=== PATIENT | female | born 1935 | race Caucasian/White ===

== ENCOUNTER 2019-10-28 08:42 | Observation (INO) ==
[2019-10-28] MEDS ORDERED: NS 1,000 ML IV ONE (09:21)
[2019-10-28] MEDS ORDERED: XYLOCAINE 1%/EPI 1:100,000 INJ ONE ×2 (09:21→10:45)
[2019-10-28] MEDS ORDERED: BOOSTRIX VACCINE IM ONE (09:21)
--- NOTE | 2019-10-28 10:11 | Diag Imaging Result Doc PS360 ---
EXAM: CT HEAD/C-SPINE W/O CONTRAST - 10/28/2019 HISTORY: head injury/pain TECHNIQUE: CT head/cervical spine without contrast COMPARISON: None. FINDINGS: CT head: There is no evidence of intracranial hemorrhage, mass effect, midline shift, or hydrocephalus. There is no evidence of infarct, although acute infarcts may not be immediately visible. There is no evidence of skull fracture. Visualized portions of paranasal sinuses and mastoid air cells appear clear except for minimal mucosal thickening in the visualized right maxillary sinus. CT cervical spine: The bones appear osteopenic. There is multilevel degenerative disc and degenerative facet disease. There are substantial degenerative changes at atlantoaxial articulation. There is no fracture or subluxation identified. IMPRESSION: CT head: No visible acute intracranial abnormality. No evidence of intracranial injury. CT cervical cervical spine: Multilevel degenerative disease. No evidence of fracture or subluxation. This exam was performed using automated exposure control, adjustment of mA or kV according to patient size, and/or use of iterative reconstruction technique. Electronically signed by Nacho Quan 10/28/2019 10:09 AM
[2019-10-28 10:15] LABS: BASO# 0.03 X1000 (0.0-0.2); BASO% 0.4 % (0.0-0.8); EOS# 0.01 X1000 (0.0-0.7); EOS% 0.1 % (0.0-10.0); HEMATOCRIT 33.4 % (37.0-47.0); HEMOGLOBIN 10.3 g/dL (12.0-16.0); LYMPH# 0.79 X1000 (1.2-3.4); LYMPH% 10.2 % (20.5-51.1); MCH 29.4 PG (27-31); MCHC 30.8 g/dL (33-37); MCV 95.4 FL (81-99); MONO# 0.48 X1000 (0.11-0.59); MONO% 6.2 % (1.7-9.3); MPV 10.3 FL (7.4-10.4); NEUT# 6.44 X1000 (1.4-6.5); NEUT% 83.1 % (42.2-75.2); PLT 391 X1000 (130-400); RDW 13.7 % (11.5-14.5); WBC 7.75 X1000 (4.8-10.8)
[2019-10-28 10:33] LABS: AGAP 12; ALB/GLOB RATIO 1.5; ALBUMIN 4.1 g/dL (3.5-5.0); ALKALINE PHOSPHATASE 88 U/L (32-104); BUN 12 mg/dL (8-22); CALCIUM 9.9 mg/dL (8.8-10.2); CHLORIDE 102 mmol/L (98-107); CK PROFILE 30 U/L (24-173); COSMO 275; CREATININE 0.8 mg/dL (0.5-0.9); ESTIMATED GFR > 60; GLUCOSE 92 mg/dL (70-104); GOT 8 U/L (10-30); GPT 9 U/L (10-36); MAGNESIUM 2.1 mg/dL (1.5-2.7); POTASSIUM 4.2 mmol/L (3.5-5.1); SODIUM 138 mmol/L (136-145); TCO2 24 mmol/L (25-35); TOTAL BILIRUBIN 0.18 mg/dL (0.20-1.00); TOTAL PROTEIN 6.9 g/dL (6.3-8.3)
[2019-10-28 10:40] LABS: PROTIME 13.3 Seconds (11.0-16.0)
--- NOTE | 2019-10-28 10:59 | Diag Imaging Result Doc PS360 ---
EXAM: CHEST-PORTABLE - 10/28/2019 HISTORY: syncope TECHNIQUE: Portable chest COMPARISON: 03/13/2019 FINDINGS: Heart size appears within normal limits. There are COPD/emphysematous changes. There are stable right upper lobe granuloma from old granulomatous disease. There are mild pulmonary scarring and pleural thickening at the left base. There are skinfold artifact over the left midlung. Lungs appear grossly clear of acute changes. There is no evidence of pneumothorax. IMPRESSION: COPD/emphysematous changes. Mild scarring at left base. No acute changes. Electronically signed by Nacho Quan 10/28/2019 10:56 AM
[2019-10-28] MEDS ORDERED: NEOSPORIN OINTMENT PACKET TOP ONE (11:07)
--- NOTE | 2019-10-28 11:16 | PROVIDER DOCUMENTATION ---
HPI-Syncope/Dizziness - General Chief Complaint: Syncope Stated Complaint: SYNCOPE/HEAD INJURY Time Seen by Provider: 10/28/19 09:13 Source: patient, family Allergies/Adverse Reactions: Patient Allergies Allergy/AdvReac Type Severity Reaction Status Date / Time cephalexin [From Keflex] Allergy ITCHING Verified 10/28/19 09:05 Home Medications: Home Medication List Medication Instructions Recorded Confirmed Last Taken Type NK [No Home Medications] 10/28/19 10/28/19 Unknown History - History of Present Illness-Syncope/Dizzy Nature of Presenting Problem: Patient lives by self, has recently had right TKA (two months ago) and reports that since surgery, she has been having episodes of near syncope, mainly in the mornings. States gets light headed, sees spots and nearly blacks out. This morning, she had another episode, but this time she did black out (briefly) and hit right side of head on the floor. Has some bleeding to right parietal scalp. Has not seen a doctor for these episodes, has no medical problems and is on no medications. Patient was not placed on blood thinners post-operatively. Her sharma rgery was done in [place] by Dr. Cooper. cannot remember her last EKG, and does not think she has ever had a stress test. No chest pain, shortness of breath, leg swelling. Last Td is uncertain. Patient called her daughter/son-in-law after this episode occurred this morning and was brought POV. Prior Episodes: reports: recent history Onset/Duration: reports: abrupt, just prior to arrival Timing: reports: gone now Position/Activity at time of episode: reports: activity (gotten out of bed to go to the bathroom) Symptoms prior to episode: reports: lightheaded, visual disturbance (saw spots), injury (right scalp, right shoulder, right elbow) Context: reports: lost consciousness, collapsed, felt faint. denies: confused after event, incontinent of urine, incontinent of stool Loss of Consciousness: brief (seconds) Location of injury. (If syncope resulted in an injury.): reports: head, RUE Current Symptoms: reports: none/feels normal Similar symptoms previously: denies: workup for same problem Recently Seen Here or By Another Healthcare Provider: No Review of Systems - Adult - REVIEW OF SYSTEMS - ADULT Constitutional: reports: no symptoms reported Eyes: reports: no symptoms reported Ears, Nose, Mouth & Throat: reports: no symptoms reported Cardiovascular: reports: no symptoms reported Respiratory: reports: no symptoms reported Gastrointestinal: reports: no symptoms reported Genitourinary: reports: no symptoms reported Musculoskeletal: reports: no symptoms reported Integumentary: reports: no symptoms reported Neurological: reports: no symptoms reported Psychiatric: reports: no symptoms reported Endocrine: reports: no symptoms reported Hematologic/Lymphatic: reports: no symptoms reported Allergic/Immunologic: reports: no symptoms reported All Other Systems: Reviewed and Negative Past History - Adult - PAST MEDICAL HISTORY-ADULT Review of Records: reports: Old Records Reviewed, Nursing Assessment Review, Medications Reviewed, Social history reviewed & non-contributory. Major Childhood Illnesses: reports: denies history Cardiovascular: reports: denies history. denies: AR Respiratory: reports: denies history Gastrointestinal: reports: denies history Obstetrical/Gynecological: reports: denies history Genitourinary: reports: denies history Musculoskeletal: reports: denies history Neurological: reports: denies history Endocrine/Immune: reports: denies history Other Conditions: reports: denies history - PRIOR SURGERIES/PROCEDURES Surgical/Procedure History: reports: recent surgery (right total knee), hysterectomy, bowel surgery - IMMUNIZATION STATUS Childhood Immunizations: UTD Flu Vaccine: NUTD - FAMILY HISTORY Family History: reviewed, not pertinent - SOCIAL HISTORY Smoking: non-smoker Substance Use: none/never Alcohol Use Frequency: never Living Situation: alone Physical Exam-General - PHYSICAL EXAM-ADULT Initial Vital Signs Reviewed: Yes (VSSAF) - CONSTITUTIONAL General Appearance: appears well, alert, no apparent distress, other (appears younger than stated age.) - EYES Eyes: PERRL/EOMI, pink conjunctivae - HEAD, EARS, NOSE, MOUTH & THROAT HENMT: moist mucous membranes, normal ENT inspection, TMs normal, pharynx normal , other (1.5cm lac right parietal scalp, mildly tender) - NECK Neck: non-tender, full range of motion, supple, normal inspection. negative: meningismus - RESPIRATORY Respiratory: chest non-tender, lungs clear, normal breath sounds, no pleuratic chest pain, no respiratory distress, no accessory muscle use - CARDIOVASCULAR Cardiovascular: normal peripheral pulses, regular rate, rhythm, no edema, no gallop, no JVD, no murmur - GASTROINTESTINAL (ABDOMEN) Abdominal Exam: normal bowel sounds, non tender, soft, no organomegaly, no pulsatile mass - LYMPHATIC Lymphatic: no adenopathy - MUSCULOSKELETAL Back Exam: normal inspection, no CVA tenderness, no vertebral tenderness Extremity: normal range of motion, non-tender, normal gait, normal inspection, no pedal edema, no calf tenderness - SKIN Integumentary: normal color, normal turgor, warm/dry - NEUROLOGIC Neurologic: auto cleaner II-XII nml as tested, grossly normal, no motor/sensory deficits - PSYCHIATRIC Psych/Mental Status: normal mood/affect, normal thought content, normal thought process, oriented x 3 Progress - PLAN OF CARE/RESULTS Progress/Plan/Lab Results: Vital Signs - 8 hr 10/28/19 08:45 10/28/19 08:56 10/28/19 08:58 Temperature 97.4 F L Pulse Rate 92 H 79 82 Respiratory Rate 17 17 24 Blood Pressure 140/73 159/80 O2 Sat by Pulse Oximetry 97 96 10/28/19 08:59 10/28/19 09:00 10/28/19 09:02 Temperature Pulse Rate 91 H 83 82 Respiratory Rate 19 21 16 Blood Pressure 147/84 152/87 O2 Sat by Pulse Oximetry 98 97 97 10/28/19 09:15 10/28/19 09:30 10/28/19 09:31 Temperature Pulse Rate 84 78 81 Respiratory Rate 24 25 H 15 Blood Pressure 154/72 O2 Sat by Pulse Oximetry 96 99 97 10/28/19 09:50 10/28/19 10:00 10/28/19 10:15 Temperature Pulse Rate 77 75 79 Respiratory Rate 20 17 18 Blood Pressure O2 Sat by Pulse Oximetry 10/28/19 10:30 10/28/19 10:31 Temperature Pulse Rate 74 74 Respiratory Rate 18 14 Blood Pressure 142/66 O2 Sat by Pulse Oximetry Laboratory Results - last 24 hr 10/28/19 10/28/19 10/28/19 09:02 10:04 10:04 WBC 7.75 RBC 3.50 L Hgb 10.3 L Hct 33.4 L MCV 95.4 MCH 29.4 MCHC 30.8 L RDW Std Deviation 13.7 Plt Count 391 MPV 10.3 Immature Gran % (Auto) 0.0 Neut % (Auto) 83.1 H Lymph % (Auto) 10.2 L [place] % (Auto) 6.2 Eos % (Auto) 0.1 Baso % (Auto) 0.4 Immature Gran # (Auto) 0.00 Neut # (Auto) 6.44 Lymph # (Auto) 0.79 L [place] # (Auto) 0.48 Eos # (Auto) 0.01 Baso # (Auto) 0.03 PT INR Sodium 138 Potassium 4.2 Chloride 102 Carbon Dioxide 24 L Anion Gap 12 BUN 12 Creatinine 0.8 Estimated GFR/1.73 m2 > 60 BUN/Creatinine Ratio 15 Glucose 92 POC Glucose 92 Calculated Osmolality 275 Calcium 9.9 Magnesium 2.1 Total Bilirubin 0.18 L AST 8 L ALT 9 L Alkaline Phosphatase 88 Creatine Kinase 30 Troponin T Lwn-X-Gfbwcnrprol Pept Total Protein 6.9 Albumin 4.1 Globulin 2.8 Albumin/Globulin Ratio 1.5 Urine Source Urine Color Urine Turbidity Urine pH Ur Specific [place] Urine Protein Ur Glucose (Stick) Ur Ketones (Stick) Urine Blood Urine Nitrite Urine Bilirubin Urobilinogen Dipstick Urine Leukocytes Urine WBC (Auto) Urine RBC (Auto) U Epithel Cells (Auto) Urine Bacteria (Auto) 10/28/19 10/28/19 10/28/19 10:04 10:04 10:04 WBC RBC Hgb Hct MCV MCH MCHC RDW Std Deviation Plt Count MPV Immature Gran % (Auto) Neut % (Auto) Lymph % (Auto) [place] % (Auto) Eos % (Auto) Baso % (Auto) Immature Gran # (Auto) Neut # (Auto) Lymph # (Auto) [place] # (Auto) Eos # (Auto) Baso # (Auto) PT 13.3 INR 1.00 Sodium Potassium Chloride Carbon Dioxide Anion Gap BUN Creatinine Estimated GFR/1.73 m2 BUN/Creatinine Ratio Glucose POC Glucose Calculated Osmolality Calcium Magnesium Total Bilirubin AST ALT Alkaline Phosphatase Creatine Kinase Troponin T < 0.010 Uok-D-Copwpvtxwzu Pept 103 Total Protein Albumin Globulin Albumin/Globulin Ratio Urine Source Urine Color Urine Turbidity Urine pH Ur Specific [place] Urine Protein Ur Glucose (Stick) Ur Ketones (Stick) Urine Blood Urine Nitrite Urine Bilirubin Urobilinogen Dipstick Urine Leukocytes Urine WBC (Auto) Urine RBC (Auto) U Epithel Cells (Auto) Urine Bacteria (Auto) 10/28/19 10/28/19 10:07 11:43 WBC RBC Hgb Hct MCV MCH MCHC RDW Std Deviation Plt Count MPV Immature Gran % (Auto) Neut % (Auto) Lymph % (Auto) [place] % (Auto) Eos % (Auto) Baso % (Auto) Immature Gran # (Auto) Neut # (Auto) Lymph # (Auto) [place] # (Auto) Eos # (Auto) Baso # (Auto) PT INR Sodium Potassium Chloride Carbon Dioxide Anion Gap BUN Creatinine Estimated GFR/1.73 m2 BUN/Creatinine Ratio Glucose POC Glucose 90 Calculated Osmolality Calcium Magnesium Total Bilirubin AST ALT Alkaline Phosphatase Creatine Kinase Troponin T Mpa-K-Lcwhkngyvez Pept Total Protein Albumin Globulin Albumin/Globulin Ratio Urine Source CLEAN CATCH Urine Color YELLOW Urine Turbidity HAZY Urine pH 6.0 Ur Specific [place] 1.012 Urine Protein TRACE A Ur Glucose (Stick) NEGATIVE Ur Ketones (Stick) 20 A Urine Blood NEGATIVE Urine Nitrite NEGATIVE Urine Bilirubin NEGATIVE Urobilinogen Dipstick NORMAL Urine Leukocytes LARGE A Urine WBC (Auto) TNTC A Urine RBC (Auto) <10 U Epithel Cells (Auto) <10 Urine Bacteria (Auto) NEGATIVE Orders Category Date Time Status Finger Stick Blood Sugar (ED) DIRECTED Care 10/28/19 09:20 Completed Saline Loc NOW Care 10/28/19 09:20 Active CHEST-PORTABLE [RAD] Stat Exams 10/28/19 09:[address] ANGIOGRM PULMONARY ARTERIES [CT] Stat Exams 10/28/19 10:[address] HEAD/C-SPINE W/O CONTRAST [CT] Stat Exams 10/28/19 09:19 Completed BLOOD CULTURE [BLDCUL] Stat Lab 10/28/19 13:49 Uncollected CBC WITH ELECTRONIC DIFF [HEME] Stat Lab 10/28/19 10:04 Completed CK PROFILE [SP CHEM] Stat Lab 10/28/19 10:04 Completed COMPREHENSIVE METABOLIC PANEL [CHEM] Stat Lab 10/28/19 10:04 Completed MAGNESIUM [CHEM] Stat Lab 10/28/19 10:04 Completed PRO B-NATRIURETIC PEPTIDE Stat Lab 10/28/19 10:04 Completed PROTIME WITH INR [COAG] Stat Lab 10/28/19 10:04 Completed TROPONIN T Stat Lab 10/28/19 10:04 Completed URINALYSIS W/POSS RFLX CULT [URINALYSIS] Stat Lab 10/28/19 11:43 Completed URINE CULTURE [RM] Routine Lab 10/28/19 11:43 Received 0.9% Sodium Chloride Inj [Ns] 1,000 ml Med 10/28/19 09:21 Discontinued IV 999 mls/hr Ciprofloxacin 400 mg/D5w [Cipro 400 mg/D5w] Med 10/28/19 13:49 Active 400 mg in 200 ml IV NOW Diph,Pertuss(Acell),Tet Vac/Pf [Boostrix Vaccine] Med 10/28/19 09:21 Discontinued 0.5 ml IM .ONCE ONE Lidocaine 1%/Epi 1:100,000 [Xylocaine 1%/Epi 1:100,000] Med 10/28/19 10:45 Discontinued 0 ml INJ NOW ONE Neomycin/Bacitrcn/Polymyx Oint [Neosporin Ointment Med 10/28/19 11:07 Discontinued Packet] 1 each TOP NOW ONE Suture Tray (General Purpose) Stat Oth 10/28/19 09:21 Active EKG [EKG] Stat Ther 10/28/19 08:47 Ordered Result Diagrams: 10/28/19 10:04 10/28/19 10:04 - REASSESSMENT Reassessment #1 Time Reassessed: 14:36 Status: improving (Patient given IVF, refused tylenol. Given also TdAP and IV Cipro for UTI. Lives by self. Will ask hospitalist to admit for syncope. PE has been ruled out.) - EKG 1 Time of EKG reading by physician:: 09:00 EKG Read and Signed by:: Tushar Duke EKG Interpretation (*Must complete 3 of following elements*): Abnormal Rate: 85 Rhythm: nsr [place]: left QRS: Q Waves present (inferiorly, consist with old IWMI), other (early transition) FL Interval: normal ST Wave: normal - XRAY 1 XRAY Study: Chest Impression: Abnormal, See EMR Report (Signed EXAM: CHEST-PORTABLE - 10/28/2019 HISTORY: syncope TECHNIQUE: Portable chest COMPARISON: 03/13/2019 FINDINGS: Heart size appears within normal limits. There are COPD/emphysematous changes. There are stable right upper lobe granuloma from old granulomatous disease. There are mild pulmonary scarring and pleural thickening at the left base. There are skinfold artifact over the left midlung. Lungs appear grossly clear of acute changes. There is no evidence of pneumothorax. IMPRESSION: COPD/emphysematous changes. Mild scarring at left base. No acute changes. Electronically signed by Nacho Quan 10/28/2019 10:56 AM 10/28/19 1056 Interpreting Physician: Nacho Quan MD Dictated Date/Time: 10/28/19 105 cc: Tushar Duke MD; Mariza Lopez MD) Comparison with other Films: no changes - CT/MRI 1 CT Study: Angiogram Impression: Normal, See EMR Report ( Signed EXAM: CT ANGIOGRM PULMONARY ARTERIES - 10/28/2019 HISTORY: syncope, recent total knee replacement TECHNIQUE: CT angiogram pulmonary arteries with intravenous contrast. Axial, coronal, and 3-D MIP images are obtained. COMPARISON: 10/28/2019 portable chest radiograph FINDINGS: There are no filling defects identified in the pulmonary arteries. There is no indication of aortic dissection. There are mild COPD changes. There is a partially calcified vertically oriented plaque or scar along the posterior left hemithorax. It is possible this could represent prior location of the chest tube. There is a right upper lobe calcified granuloma from old granulomatous disease. There is mild atelectasis or scarring at the lung bases. There is no discrete consolidation, pleural effusion, or pneumothorax identified. IMPRESSION: No evidence of pulmonary embolism. Mild COPD changes. No discrete pneumonia. No pneumothorax. Electronically signed by Nacho Quan 10/28/2019 2:28 PM 10/28/19 1428 Interpreting Physician: Nacho Quan MD Dictated Date/Time: 10/28/19 1420) 2 CT Study: Head (and C-Spine) Impression: Abnormal, See EMR Report (EXAM: CT HEAD/C-SPINE W/O CONTRAST - 10/28/2019 HISTORY: head injury/pain TECHNIQUE: CT head/cervical spine without contrast COMPARISON: None. FINDINGS: CT head: There is no evidence of intracranial hemorrhage, mass effect, midline shift, or hydrocephalus. There is no evidence of infarct, although acute infarcts may not be immediately visible. There is no evidence of skull fracture. Visualized portions of paranasal sinuses and mastoid air cells appear clear except for minimal mucosal thickening in the visualized right maxillary sinus. CT cervical spine: The bones appear osteopenic. There is multilevel degenerative disc and degenerative facet disease. There are substantial degenerative changes at atlantoaxial articulation. There is no fracture or subluxation identified. IMPRESSION: CT head: No visible acute intracranial abnormality. No evidence of intracranial injury. CT cervical cervical spine: Multilevel degenerative disease. No evidence of fracture or subluxation. This exam was performed using automated exposure control, adjustment of mA or kV according to patient size, and/or use of iterative reconstruction technique. Electronically signed by Nacho Quan 10/28/2019 10:09 AM 10/28/19 1009 Interpreting Physician: Nacho Quan MD Dictated Date/Time: 10/28/19 0959 cc: Tushar Duke MD; Mariza Lopez MD) - CONSULTS/PCP/HOSPITALIST Notification #1 *Consult/PCP/Hospitalist*: SHEILA Masters Time Discussed: 14:40 Consult Disposition: Will see in ED, Admit Procedures - LACERATION/WOUND REPAIR/FB Right Head Wound Location: Other: parietal scalp Wound Length: 1.5 Wound's Depth, Shape: into muscle, irregular Wound Explored/Foreign Body: clean Irrigated with Saline?: Yes Prepped with: Hibiclens Anesthetic: 1%, Lidocaine w/ Epinephrine Volume of Anesthetic (ml's): 5 Wound Debrided: minimal Wound Repaired with: Jonelle-Small (4) Number of Sutures: 4 Layer Closure?: No Sterile Dressing Applied?: No Splint Applied?: No Sling Applied?: No Post Procedure Neurovascular Exam: Intact Departure - Departure Date of Disposition Decision: 10/28/19 Time of Disposition Decision: 14:37 DIAGNOSIS: Syncope and collapse, Abnormal EKG, UTI (urinary tract infection), bacterial Laceration of scalp without complication Qualifiers: Encounter type: initial encounter Qualified Code(s): S01.01XA - Laceration without foreign body of scalp, initial encounter Disposition: ADMITTED INPATIENT 09 Certified Medical Emergency: Emergent Condition: Stable Referrals and Follow-Ups: Mariza Lopez MD [Primary Care Provider] - - Critical Care Note This patient required my direct & personal management of CC.: No Attestation - Physician/ VICENTE Attestation Patient care was provided by Advanced Practice Provider:: No The physician spent face to face time with patient:: Yes Advanced Practice Provider documentation review:: Supervising physician onsite and consulted in the evaluation and care of this patient. The physician did have a face to face encounter with the patient.
[2019-10-28 11:46] LABS: URINE SOURCE CLEAN CATCH
[2019-10-28 11:47] LABS: BILIRUBIN URINE NEGATIVE (NEGATIVE); BLOOD URINE NEGATIVE (NEGATIVE); COLOR YELLOW; GLUCOSE URINE NEGATIVE (NEGATIVE); KETONE URINE 20 mg/dL (NEGATIVE); LEUKOCYTES URINE LARGE (NEGATIVE); NITRITE URINE NEGATIVE (NEGATIVE); PROTEIN URINE TRACE mg/dL (NEGATIVE); SP GRAVITY URINE 1.012; TURBIDITY URINE HAZY (CLEAR); UROBILINOGEN URINE NORMAL (NORMAL)
[2019-10-28 11:49] LABS: UR EPITHELIAL CELLS <10 /HPF (<10); URINE BACTERIA NEGATIVE /HPF; URINE RBC <10 /HPF (<10); URINE WBC TNTC /HPF (<10)
[2019-10-28] MEDS ORDERED: CIPRO 400 MG/D5W 400 MG/200 ML IVPB IV ONE (13:49)
--- NOTE | 2019-10-28 14:30 | Diag Imaging Result Doc PS360 ---
EXAM: CT ANGIOGRM PULMONARY ARTERIES - 10/28/2019 HISTORY: syncope, recent total knee replacement TECHNIQUE: CT angiogram pulmonary arteries with intravenous contrast. Axial, coronal, and 3-D MIP images are obtained. COMPARISON: 10/28/2019 portable chest radiograph FINDINGS: There are no filling defects identified in the pulmonary arteries. There is no indication of aortic dissection. There are mild COPD changes. There is a partially calcified vertically oriented plaque or scar along the posterior left hemithorax. It is possible this could represent prior location of the chest tube. There is a right upper lobe calcified granuloma from old granulomatous disease. There is mild atelectasis or scarring at the lung bases. There is no discrete consolidation, pleural effusion, or pneumothorax identified. IMPRESSION: No evidence of pulmonary embolism. Mild COPD changes. No discrete pneumonia. No pneumothorax. Electronically signed by Nacho Quan 10/28/2019 2:28 PM
[2019-10-28 15:06] LABS: UR AMPHETAMINES QUAL NONE DETECTED (NONE DETECT); UR BARBITUATES QUAL NONE DETECTED (NONE DETECT); UR BENZODIAZEPIN QUAL NONE DETECTED (NONE DETECT); UR CANNABINOIDS QUAL NONE DETECTED (NONE DETECT); UR COCAINE QUAL NONE DETECTED (NONE DETECT); UR METHADONE QUAL NONE DETECTED (NONE DETECT); UR OPIATES QUAL NONE DETECTED (NONE DETECT); UR OXYCODONE QUAL NONE DETECTED (NONE DETECT); UR PCP QUAL NONE DETECTED (NONE DETECT)
[2019-10-28] MEDS ORDERED: ZOFRAN IV PRN (15:27)
[2019-10-28] MEDS ORDERED: TYLENOL PO PRN (15:27)
--- NOTE | 2019-10-28 16:18 | HISTORY AND PHYSICAL ---
PRIMARY CARE PROVIDER: Dr. Lopez. ORTHOPEDIC SURGEON: For her right knee is Dr. Hunter Cooper out of [place]. CHIEF COMPLAINT: Passed out. HISTORY OF PRESENT ILLNESS: Ms. Nayeli Auguste is an 84-year-old female with a medical history of small bowel obstruction with partial colon resection 9 years ago, degenerative joint disease where she had to have her right knee replaced on the 04 of September. There she had issues where her blood pressure was a little low from time to time according to her family member that is at the bedside and that she had also had some iron deficiency anemia. She was discharged, had [place] filled, but states she never took her [place]. She also states that for at least the 1st 4 weeks every single morning she would get up, she would feel like she was dizzy, or just felt funny like she was going to pass out but never did. Then after the 1st month it started easing up. It just was not as frequent. Today she had an actual full syncopal spell. She was in the kitchen and did not feel right. She states it was not a dizzy feeling, but she just felt like she could pass out. So she went to the restroom, was going to try and go right back to bed, and when she went to stand is when she fell and hit her head. She did sustain a head laceration that required chester. Currently, she has no pain. She denies fever, chills, nausea, vomiting, or diarrhea. Around 3 weeks ago, the right knee was red and warm and she was having some urinary symptoms and she was given Bactrim antibiotic. The right knee appears to be healing well. She has white blood cells and leukocytes in her urine, but denies any urinary symptoms at this time. So we will get her admitted and we will start working her up for causes of syncope, such as orthostatic hypotension. We will do an echocardiogram, carotid ultrasound. PAST MEDICAL HISTORY: 1. Small bowel obstruction 9 years ago where she had a colon resection. 2. Degenerative joint disease. 3. Arthritis. 4. Iron deficiency anemia. 5. Undiagnosed COPD found on chest x-ray and pulmonary arteriogram this admission. SURGICAL HISTORY: 1. Bilateral cataracts with lens implants. 2. Appendectomy. 3. Partial colon resection 9 years ago. 4. On 09/04/2019 total right knee replacement. 5. Recent colonoscopy in July. 6. Hysterectomy. 7. Right pleural chest tube in 1970s secondary to pneumothorax. SOCIAL HISTORY: Denies tobacco, alcohol, or illicit drug use. She lives at home alone. FAMILY HISTORY: Mother had ovarian cancer. Father had lung cancer. ALLERGIES: Keflex caused itching. HOME MEDICATIONS: None. REVIEW OF SYSTEMS: Fourteen point review of systems are complete and all were negative except for those mentioned above in HPI. PHYSICAL EXAMINATION: VITAL SIGNS: Temperature is 97.4 degrees, heart rate 74, respiratory rate 14, blood pressure 142/66, O2 saturation 97% on room air. Orthostatic vital signs, supine heart rate 77, blood pressure 159/80, sitting heart rate 83, blood pressure 141/78, standing heart rate 91, blood pressure 147/84. GENERAL: Ms. Nayeli Auguste is an 84-year-old female. She is in no acute distress. She is able to answer questions appropriately. HEENT: Normocephalic. She has a right occipital laceration that has chester and drying blood. Pupils equal, round, reactive to light. Extraocular movements intact. Mucous membranes are dry. NECK: Trachea midline. CARDIOVASCULAR: S1, S2. Regular rate and rhythm. No rubs, gallops, murmurs. No lower extremity edema. There are +2 dorsalis and radial pulses. Negative JVD or carotid bruits. PULMONARY: Clear to auscultate. Bilateral breath sounds. No accessory muscle use or work of breathing noted. ABDOMEN: Soft, nontender, nondistended. Positive bowel sounds x4. EXTREMITIES: Moves all extremities equally. Full range of motion. NEUROLOGIC: A O x3. Follows commands. Sensory is intact. SKIN: Warm, dry, intact except for this scalp where she has a laceration and chester intact. LABORATORY DATA: White blood cells 7,000, hemoglobin 10, hematocrit 33, platelet count 391,000. INR is 1.00. Sodium 138, potassium 4.2, BUN 12, creatinine 0.8, glucose 92, calcium 9.9, magnesium 2.1, bilirubin 0.18, AST 8, ALT 9. CK 30. Troponin less than 0.01. ProBNP 103. Albumin is 4.1. Urinalysis: Trace protein, 20 ketones, large leukocytes, too numerous to count white blood cells, negative for bacteria. Urine drug screen negative. IMAGING: Head and cervical spine. Impression of the head, no acute intracranial abnormalities. In the cervical spine is multilevel degenerative disease. No fracture or subluxation. Chest x- ray: COPD, emphysematous changes, mild scarring at the left base. Pulmonary arteriogram: No evidence of pulmonary embolism, but there is some mild COPD changes. No discrete pneumonia. No pneumothorax. ASSESSMENT AND PLAN: 1. Syncope. We will get an echocardiogram, carotid ultrasound, orthostatic vital signs. Give her some fluids. 2. Recent right knee replacement. She seems to be stable from that. The site is dry. No signs or symptoms of infection. Physical therapy has been ordered. 3. History of small bowel obstruction 9 years ago. No complaints at this time. 4. Reported iron deficiency anemia 2 months ago when she was at [place]. Her hemoglobin hematocrit are 10 and 33, is currently stable. 5. Arthritis. 6. Possible urinary tract infection but no signs or symptoms of it. White count is 7,000. She did get a dose of Cipro in the ER. We will hold off on any more antibiotics as she is asymptomatic with it. 7. Right head laceration with chester intact. Soap and water, clean every day. 8. Deep venous thrombosis prophylaxis. SCDs. Dictated by SHEILA Slade for Dipak Krishnamurthy MD Addendum: Patient seen and examined by myself. Agree with SHEILA note. It reflects my assessment and plan. Patient is being admitted to hospital for syncope workup which is under progress. Will monitor patient closely. cc: SHEILA Slade MD [facility]
--- NOTE | 2019-10-28 17:57 | EKG Report ---
Test Performed on : 10/28/2019 08:53:49 AM Test Reason : SYNCOPE Blood Pressure : / mmHG Vent. Rate : 085 BPM Atrial Rate : 085 BPM P-R Int : 138 ms QRS Dur : 072 ms QT Int : 360 ms P-R-T Axes : 038 -64 034 degrees QTc Int : 428 ms Normal sinus rhythm. Left axis deviation Inferior infarct , age undetermined Abnormal ECG No previous ECGs available Unconfirmed Result
[2019-10-28] MEDS: NS 1,000 ML IV SCH ×2 (21:43→22:30)
[2019-10-29] MEDS: NS 1,000 ML IV SCH ×4 (04:36→20:30)
--- NOTE | 2019-10-29 07:16 | EKG Report ---
Test Performed on : 10/29/2019 07:05:50 AM Test Reason : chest pain Blood Pressure : / mmHG Vent. Rate : 079 BPM Atrial Rate : 079 BPM P-R Int : 156 ms QRS Dur : 090 ms QT Int : 378 ms P-R-T Axes : 049 -43 041 degrees QTc Int : 433 ms Normal sinus rhythm. Left axis deviation Abnormal ECG When compared with ECG of 28-OCT-2019 08:53, (Unconfirmed) Criteria for Inferior infarct are no longer present Confirmed by Radha BARRETO, Cristopher ([id number]) on 10/29/2019 8:32:52 AM
[2019-10-29 07:38] LABS: BASO# 0.03 X1000 (0.0-0.2); BASO% 0.5 % (0.0-0.8); EOS# 0.04 X1000 (0.0-0.7); EOS% 0.7 % (0.0-10.0); HEMATOCRIT 29.8 % (37.0-47.0); HEMOGLOBIN 9.2 g/dL (12.0-16.0); LYMPH# 1.63 X1000 (1.2-3.4); MCH 29.5 PG (27-31); MCHC 30.9 g/dL (33-37); MCV 95.5 FL (81-99); MONO# 0.53 X1000 (0.11-0.59); MONO% 9.1 % (1.7-9.3); MPV 10.2 FL (7.4-10.4); NEUT# 3.59 X1000 (1.4-6.5); NEUT% 61.7 % (42.2-75.2); PLT 366 X1000 (130-400); RBC 3.12 XMIL (4.2-5.4); RDW 13.6 % (11.5-14.5); WBC 5.82 X1000 (4.8-10.8)
[2019-10-29 08:02] LABS: AGAP 9; ALB/GLOB RATIO 1.5; ALBUMIN 3.6 g/dL (3.5-5.0); ALKALINE PHOSPHATASE 73 U/L (32-104); BUN 7 mg/dL (8-22); CALCIUM 9.2 mg/dL (8.8-10.2); CHLORIDE 110 mmol/L (98-107); COSMO 283; CREATININE 0.6 mg/dL (0.5-0.9); ESTIMATED GFR > 60; GLUCOSE 92 mg/dL (70-104); GOT 8 U/L (10-30); GPT 6 U/L (10-36); POTASSIUM 3.6 mmol/L (3.5-5.1); SODIUM 143 mmol/L (136-145); TCO2 24 mmol/L (25-35); TOTAL BILIRUBIN 0.27 mg/dL (0.20-1.00)
[2019-10-29] MEDS ORDERED: BLISTEX MEDICATED BERRY LIP BALM TOP PRN (14:28)
--- NOTE | 2019-10-29 14:34 | ECHO REPORT ---
ORDER DATE: 10/28/2019 INDICATION: Syncope. FINDINGS: 1. Right atrium appears normal in size. 2. Mild tricuspid regurgitation. RV systolic pressure of 37. 3. Normal RV size and systolic function. 4. No significant pulmonic insufficiency. 5. Mild left atrial enlargement with a dimension of 4.2 cm. Volume index of 30. 6. No mitral valve prolapse. Mild mitral regurgitation. No evidence of mitral stenosis. 7. Normal LV size, end-diastolic dimension of 4.1. Normal wall thicknesses with a posterior and interventricular septal wall thickness of 0.9 cm each. Normal LV systolic function. Estimated EF 65% to 70% with normal wall motion. 8. Aortic valve opens well. It is trileaflet. No evidence of stenosis or insufficiency. 9. The aorta appears normal in visualized segments. 10. No pericardial effusion seen. cc: MD Sonam Rubio CRNP
--- NOTE | 2019-10-29 15:04 | PROGRESS NOTE ---
DATE: 10/29/2019 SUBJECTIVE: Patient reports no more episodes of weakness. Actually she denies any sensation of dizziness or lightheadedness. OBJECTIVE: Vital Signs: Temperature 97.4 degrees, heart rate 79, respiratory rate 17, blood pressure 159/80, O2 saturation 97% on room air. General Examination: This is a 89-year-old, female lying in bed in no acute distress. Cardiovascular exam: S1, S2 heard. No murmurs, gallops, or rubs. Regular rate and rhythm. Respiratory exam: Clear bilaterally to auscultation. No work of breathing or using accessory muscles. Abdomen: Soft, nontender to palpation. Bowel sounds present. No organomegaly. Extremities: No clubbing, cyanosis, or edema. Peripheral pulses present in both legs. Neurological exam: Patient alert and oriented x3. Moves 4 extremities. LABORATORY DATA: Reviewed. ASSESSMENT AND PLAN: 1. Syncope. Workup under progress. Echocardiogram and carotid ultrasound has been ordered. We have checked orthostatic vital signs and those are negative. We will continue with intravenous fluids. We will see what it shows. 2. Iron deficiency anemia is stable. We will continue to monitor. 3. Right hip laceration. We will continue cleaning that wound. DISPOSITION: I think if all the workup that we have ordered is negative, I think we can discharge this patient. We will check her exams to see if they are done at the end of the day. cc: Dipak Krishnamurthy MD
[2019-10-30] MEDS: NS 1,000 ML IV SCH (05:30)
[2019-10-30 07:48] LABS: BASO# 0.03 X1000 (0.0-0.2); BASO% 0.6 % (0.0-0.8); EOS# 0.11 X1000 (0.0-0.7); EOS% 2.3 % (0.0-10.0); HEMATOCRIT 28.6 % (37.0-47.0); HEMOGLOBIN 8.8 g/dL (12.0-16.0); LYMPH# 1.42 X1000 (1.2-3.4); LYMPH% 29.4 % (20.5-51.1); MCH 29.5 PG (27-31); MCHC 30.8 g/dL (33-37); MONO# 0.48 X1000 (0.11-0.59); MONO% 9.9 % (1.7-9.3); MPV 10.4 FL (7.4-10.4); NEUT# 2.79 X1000 (1.4-6.5); NEUT% 57.8 % (42.2-75.2); PLT 326 X1000 (130-400); RBC 2.98 XMIL (4.2-5.4); RDW 13.6 % (11.5-14.5); WBC 4.83 X1000 (4.8-10.8)
[2019-10-30 08:26] LABS: AGAP 10; ALB/GLOB RATIO 1.4; ALBUMIN 3.3 g/dL (3.5-5.0); ALKALINE PHOSPHATASE 64 U/L (32-104); BUN 6 mg/dL (8-22); CHLORIDE 113 mmol/L (98-107); COSMO 284; CREATININE 0.6 mg/dL (0.5-0.9); ESTIMATED GFR > 60; GLUCOSE 91 mg/dL (70-104); GOT 8 U/L (10-30); GPT 7 U/L (10-36); POTASSIUM 3.6 mmol/L (3.5-5.1); SODIUM 144 mmol/L (136-145); TCO2 21 mmol/L (25-35); TOTAL BILIRUBIN < 0.15 mg/dL (0.20-1.00); TOTAL PROTEIN 5.6 g/dL (6.3-8.3)
[2019-10-30 12:10] VITALS: BP 143/65
--- NOTE | 2019-10-30 22:53 | Extremity Venous Study ---
PROCEDURE NAME: Venous U/S Bilateral Legs - 10/28/2019 REFERRING PHYSICIAN: SHEILA Slade READING PHYSICIAN: Deng Lance MD TALENT ACQUISITION MANAGER: Migue. INDICATION: Leg swelling. FINDINGS: The deep and superficial veins of the lower extremities were imaged throughout their course. They are compressible, patent, and without thrombus. INTERPRETATION: No deep vein thrombosis or superficial thrombophlebitis of either lower extremity. cc: MD Sonam Rodriguez CRNP
--- NOTE | 2019-10-30 22:53 | Carotid Study ---
DATE: 10/28/2019 REFERRING PHYSICIAN: Marquez READING PHYSICIAN: Deng Lance MD ICE CREAM SCOOPER: Migue. INDICATION: Syncope. FINDINGS: The carotid systems were imaged bilaterally. There was no significant plaque disease, stenotic lesions, turbulent flow or elevated velocities. There was antegrade vertebral flow bilaterally. The percent stenosis is 0% to 39% bilaterally. INTERPRETATION: Unremarkable carotid imaging study. cc: MD Sonam Rodriguez CRNP
--- NOTE | 2019-10-31 14:23 | DISCHARGE SUMMARY ---
ADMISSION DATE: 10/29/2019 DISCHARGE DATE: 10/30/2019 DISCHARGE DIAGNOSES: 1. Syncope. 2. Iron deficiency anemia. 3. Right hip laceration. PROCEDURES PERFORMED: 1. Head and cervical C-spine CT scan dated 10/28/2019 impression: No evidence of acute intracranial abnormality, no evidence of intracranial injury, multilevel degenerative disease. No evidence of fracture or subluxation. 2. Chest x-ray dated 10/28/2019 impression: COPD/emphysematous changes, mild scarring at the left base. No acute changes. 3. Echocardiogram dated 10/28/2019 impression: Normal left ventricular systolic function, ejection fraction 65 to 70 percent with normal wall motion, normal right ventricular size and function. 4. Carotid ultrasound, no obstruction or clot. 5. EKG dated 10/28/2019 showed normal sinus rhythm, left axis deviation. HOSPITAL COURSE: This is an 84-year-old female with a past medical history of small bowel obstruction with partial colon resection 9 years ago, degenerative joint disease where she had to have her right knee replaced on the 08/25/2019. There, she had issues were the blood pressure has been a little bit low from time to time according to her family member that was at the bedside and also iron deficiency anemia. She was discharged with [place], but she never took [place] at home. She also states that for at least the first 4 weeks, every single morning she would get up and feel dizzy and funny like she was going to pass out, but she never did. Then, after the first month, it started easing up and just not as frequent, but the day of admission on 10/28/2019, she had actually a full syncopal spell. She was in the kitchen and she did not feel well. She stated it was not a dizzy feeling, but she felt like she could pass out. She went to the restroom and was going to try to go right back to the bed, but she was about to stand up. She fell and hit her head. She did sustain a head laceration that required some chester. She is not in pain. She denies any fever, chills, nausea, vomiting, diarrhea, or palpitation. Apparently 3 weeks ago, her a right knee was red and warm, and she was having some urinary symptoms, and she was given Bactrim, and the knee appears to be healing well. She has a little white blood cell count in the urine, but she actually denies any urinary symptoms at this time. We had an echocardiogram done, an EKG done, and a carotid ultrasound that did not show any abnormality, and actually her orthostatic vital signs were stable. I discussed the case briefly with Cardiology Department, and they are planning to do a cardiac monitoring at home. This will be delivered so she can use it for a month and then follow up with them. I personally believed that happened because this patient was a little bit dehydrated, and she has been telling me that every time she stands up quickly, she feels a little bit dizzy and like she is going to pass out. It looks like she has been having some kind of orthostatic changes. I talked to her about those symptoms and signs, and she seems to understand. I told her to slow down because apparently she is always in a hurry. At the moment of discharge, this patient was tolerating p.o., she was ambulating, and she was not having any kind of problems. PHYSICAL EXAMINATION: Vital signs: Temperature 98 degrees, pulse 73, respiratory rate 20, blood pressure 143/65, oxygen saturation 100% on room air. HEENT: Head normocephalic, no trauma, PERRLA. Neck: Neck is supple. No JVD. No masses. Central trachea. Chest: Clear to auscultation. No wheezing. No rales. Abdomen: Soft, nontender, nondistended. No hepatosplenomegaly. Extremities: No edema, no clubbing, no cyanosis. The hip wound is healing fine. Neurological: The patient is alert and oriented x3. No focal deficits. LABORATORY: WBC 4.8, hemoglobin 8.8, hematocrit 28.6, platelet 326,000. Sodium 144, potassium 3.6, chloride 113, bicarbonate 21, BUN 6, creatinine 0.6. Glucose 91, calcium 9, AST 8, ALT 7, alkaline phosphatase 64, albumin 3. DISCHARGE MEDICATIONS: None. FOLLOWUP: This patient will receive a poultry processor at home in a few days. I talked to the patient about it. She will have instructions on the box, and also she can call the phone number on the box so she can put this on her chest. In case that she cannot do it by herself, [facility], and they will help her with that. She seems to understand, and she wants to proceed. I discussed the case with Dr. Ferreira and also Naomi, the nurse practitioner, and they will set it up. cc: MD Dipak Byrnes MD
== END 2019-10-30 15:36 | disposition home or self-care (01) ==
LOC: ED 08:42 → OPS 15:22 → DIRADM 15:22 → 3N 15:22 → EDIPHOLD 18:38 → SUATTDRO 18:38 → 3N 20:56
PROVIDERS: ADMIT Internal Medicine; ATTEND Internal Medicine